=== PATIENT | female | born 1960 | race Caucasian/White ===

== ENCOUNTER → 2020-11-05 | Outpatient (CLI) | payer OTHER ==
--- NOTE | 2020-11-05 12:27 | RAD ---
Soft tissue neck ultrasound INDICATION: 60-year-old female with swelling and lump in the right neck. Clinical diagnosis of adenop athy. She reports getting her second Covid vaccine 2-3 weeks ago and had fever and chills. COMPARISON: No relevant comparisons currently available. FINDINGS: Grayscale, color and spectral Doppler imaging of the right neck in the area of concern identifies an oval 1.8 cm long circumscribed mixed echogenicity mass with a low resistance internal arterial blood flow, compatible with mildly enlarged right level 2 cervical lymph node. The cortical margins are sli ghtly indistinct. The right neck also shows a mildly enlarged 1.7 cm long lymph node with cortical thickening up to 3 m m. The left neck in the area of concern shows a few mildly enlarged lymph nodes, 2 of which measured 2 c m long but show no cortical thickening or effacement of the fatty hilum. IMPRESSION: Sonographic findings are compatible with reactive bilateral cervical adenopathy. This could relate to patient's recent immunization. Recommend clinical follow-up with consideration of repeat imaging if symptoms or clinical findings persist. Electronically signed by: Nirav Salter MD (11/05/2020 12:25 PM) [id number]
== END ==
LOC: US 10:45
PROVIDERS: ATTEND Nurse Practitioner Family
DX: R59.0 Localized enlarged lymph nodes (principal)
CPT/HCPCS: 76536